=== PATIENT | female | born 1990 | race African-American/Black ===

== ENCOUNTER 2020-09-24 01:04 | Emergency (ER) | payer MEDICARE, MEDICAID ==
[~2020-09-24] VITALS: Ht 167.6 cm; Wt 75.0 kg
[~2020-09-24 01:04] MED LIST: SEROQUEL
[2020-09-24 01:07] VITALS: BP 140/94
== END 2020-09-24 01:30 | disposition home or self-care (01) ==
LOC: ER 01:04
DX: Z02.79 Encounter for issue of other medical certificate (principal); F31.9 Bipolar disorder, unspecified; I10 Essential (primary) hypertension; F20.9 Schizophrenia, unspecified; F17.290 Nicotine dependence, other tobacco product, uncomplicated
CPT/HCPCS: 99283